=== PATIENT | female | born 1960 | race Caucasian/White ===

== ENCOUNTER → 2016-05-15 | Outpatient (CLI) | payer BC ==
--- NOTE | ~2016-05-15 | MY11 ---
[facility] A Service of [facility] / [facility] RADIOLOGY TEXT RESULTS PATIENT: AUDIE SHORT LOCATION: [facility] : 60 UNIT #: [id number] AGE: [address]: Surinder Hubbard MD SEX: F ORDER DR: [id number] [facility]. [place], [place] [address] [id number] O MR#: [id number] Acc #: [id number] NAME: AUDIE SHORT : 1960 SEX: F STUDY DATE/TIME: 05/15/2016 8:07 UNIT: [facility] ROOM: STUDY DESCRIPTION: MY Mammogram Screening Dig Milind Attending Physician: Surinder Hubbard M.D. Referring Physician: Surinder Hubbard M.D. Ordering Physician: Surinder Hubbard M.D. Primary Care Physician: Surinder Hubbard M.D. MEDICAL IMAGING REPORT This report is preliminary unless electronic signature is present EXAM Bilateral digital screening mammogram CAD 05/15/2016 INDICATIONS 56-year-old female for routine screening. No reported problems and no personal history of breast cancer. Family history positive in the patient's aunt and father. No surgeries. TECHNIQUE CC and MLO views of breast were obtained and reviewed with an approved CAD device COMPARISON 05/01/2012 07/31/2009 05/28/2007 FINDINGS Breast parenchyma is composed of scattered fibroglandular densities. The pattern is unchanged. There is no new dominant nodule, mass or suspicious cluster of microcalcifications. Intramammary nodes are stable. IMPRESSION Benign screening mammogram. One year followup recommended. Patients over the age of 40 are entered into a reminder system with target due date for the next mammogram. A result letter will also be sent to the patient. BIRADS: 2 Benign finding. Dictated by... Moe Valiente M.D. THIS IS AN ELECTRONICALLY VERIFIED REPORT Moe Valiente M.D. at 05/15/2016 4:51 PM [facility] A Service of [facility] RADIOLOGY TEXT RESULTS PATIENT: AUDIE SHORT LOCATION: [facility] : 60 UNIT #: [id number] AGE: [address]: Surinder Hubbard MD SEX: F ORDER DR: Evelyn TD: 05/15/2016 12:08 JOB #: [id number] MEDICAL IMAGING REPORT COPY
== END | disposition home or self-care (01) ==
LOC: CWCC 07:36
DX: Z12.31 Encounter for screening mammogram for malignant neoplasm of breast (principal); Z80.3 Family history of malignant neoplasm of breast
CPT/HCPCS: G0202